=== PATIENT | female | born 1980 | race Caucasian/White ===

== ENCOUNTER 2017-03-08 16:54 | Inpatient (IN) | payer OTHER ==
[~2017-03-08] VITALS: Ht 170.2 cm; Wt 64.4 kg
[~2017-03-08 16:54] MED LIST: ACYCLOVIR400 MG PO; DILAUDID4 MG PO; IRON325 M1 PO; LEVAQUIN750 MG PO; NUVARING VAGIN1 EACH VAGINAL; PERCOCET 7.5-31 EACH PO; PRENATAL TABLE1 EAC1 PO; ZESTRIL10 MG PO
[2017-03-09] MEDS ORDERED: OXYCODON-ACETA1 EAC2 PO (12:57)
[2017-03-09] MEDS ORDERED: MOTRIN IB200 MG PO (12:58)
[2017-03-09] MEDS ORDERED: TYLENOL325 MG PO (12:58)
--- NOTE | 2017-03-10 11:14 | HP ---
[facility] [place] [facility] [address], [place] [address] Signed ADMISSION DATE: 03/08/2017 TIME: 08:15 p.m. REASON FOR ADMISSION: Early appendicitis. HISTORY OF PRESENT ILLNESS: This 37-year-old, white woman is well known to me from the past having undergone laparoscopic cholecystectomy with cholangiogram in June of 2014. Yesterday, she ate a tuna melt sandwich, and then began having epigastric and mid abdominal pain, which has since migrated to the right lower abdomen and has been progressively uncomfortable. She presented to the emergency room where she was evaluated by Dr. Slaughter and found to have tenderness in the right lower abdomen. A CT scan of the abdomen was performed confirming probable appendicitis with a dilated appendix. She has not really eaten since yesterday. She is admitted for further evaluation and care. PAST MEDICAL HISTORY: Childbirth x2. The patient is known to have a distant history of ovarian cyst and excision of right breast cyst in the past. Additionally, laparoscopic cholecystectomy with intraoperative cholangiogram in June of 2014. Past medical history does include hypertension. MEDICATIONS: Lisinopril. SOCIAL HISTORY: She is unmarried, but she lives with her children's father. She is not currently working. Previously, she worked at [employer]. REVIEW OF SYSTEMS: She denies any shortness of breath or chest pain. She has had no dysphagia or dysuria. She denies any hematemesis or blood per rectum. PHYSICAL EXAMINATION: GENERAL: A thin, white woman, who looks to be in no significant distress. HEENT: Mucous membranes are somewhat dry, however. NECK: Trachea is midline. CHEST: Shows normal respiratory excursion. HEART: Pulses regular. ABDOMEN: Nondistended. There is mild tenderness at McBurney point. Rovsing sign is negative. Electronically Signed By: VICTORINA KEN MD 03/10/17 1114 PATIENT NAME: MELISSA LUCERO HISTORY AND PHYSICAL DATE OF : 76 PHYSICIAN: VICTORINA KEN MD REPORT #: [id number] REPORT IS CONFIDENTIAL AND NOT TO BE RELEASED WITHOUT AUTHORIZATION [facility] [place] [facility] [address], [place] [address] Signed PELVIC: Exam was not undertaken. Her last menstrual period was 1 week ago. EXTREMITIES: No clubbing, cyanosis, or edema. LABORATORY DATA: White count is 9.5, hematocrit 44.8, and platelets 207,000. Chem profile is normal including liver enzymes and amylase normal. Urinalysis was also normal. I have reviewed the CT scan in detail. I see no evidence of bowel obstruction or other particular abnormalities. The appendix did appear mildly thickened. ASSESSMENT: Clinical history and radiographic findings are most consistent with appendicitis. Fluid resuscitation is underway. Antibiotics have been given including Zosyn. I believe appendectomy would be the most appropriate course of management. We discussed nonoperative therapy, which I do not favor, and she is not interested in any way. The risks of bleeding, infection, need for open procedure, failure of diagnosis, missed diagnosis, and need for other indicated procedures were reviewed in detail. She understands and wished to proceed. MD JOSÉ MIGUEL Hawk/RAFAEL /[id number] cc: MD Luciana Tadeo PA Electronically Signed By: VICTORINA KEN MD 03/10/17 1114 PATIENT NAME: MELISSA LUCERO EDWARD HISTORY AND PHYSICAL DATE OF : 76 PHYSICIAN: VICTORINA KEN MD REPORT #: [id number] REPORT IS CONFIDENTIAL AND NOT TO BE RELEASED WITHOUT AUTHORIZATION
--- NOTE | 2017-03-10 11:14 | OR ---
[facility] [place] [facility] [address] [place], [place] [address] Signed DATE OF OPERATION: 03/08/2017 SURGEON: Victorina Ken MD PREOPERATIVE DIAGNOSIS: Acute appendicitis. POSTOPERATIVE DIAGNOSIS: Acute nonperforated appendicitis. PROCEDURE: Laparoscopic appendectomy. ANESTHESIA: General endotracheal. Ap Argueta CRNA Local 10 mL of 0.25% Marcaine with epinephrine. INDICATION: A 37-year-old white woman, is taken to operation for acute appendicitis. Her symptoms began yesterday with central abdominal pain, migrating to the right lower abdomen. She has tenderness in the right lower quadrant. She is known to me from 2014, at which time she underwent laparoscopic cholecystectomy and cholangiogram. Her white count is slightly elevated. Urinalysis is normal. Beta-hCG is negative. CT scan was performed, which showed inflammatory changes of the appendix, normal terminal ileum and colon. She is admitted to undergo appendectomy, preferred by laparoscopic approach, understanding the risks of bleeding, infection, need for open procedure and other unforeseen complications. FINDINGS: There is no sign of ascites or carcinomatosis. The liver appeared normal. There was surgical absence of the gallbladder. The appendix was indeed inflamed, it was excised without problem. The ilium appeared normal. The pelvic organs were not easily visualized. DESCRIPTION OF PROCEDURE: The patient was brought to the operating room, given general endotracheal anesthetic. She received preoperative antibiotic Zosyn. After satisfactory general endotracheal Electronically Signed By: VICTORINA KEN MD 03/10/17 1114 PATIENT NAME: MELISSA LUCERO OPERATIVE REPORT DATE OF : 76 PHYSICIAN: VICTORINA KEN MD REPORT #: [id number] REPORT IS CONFIDENTIAL AND NOT TO BE RELEASED WITHOUT AUTHORIZATION [facility] [place] [facility] [address] [place], [place] [address] Signed anesthesia, a Gonzalez catheter was placed. The abdomen was prepared with a chlorhexidine solution and draped sterilely. Previous infraumbilical incision was used and dissection carried through the subcutaneous tissue and using a Katie cannula technique pneumoperitoneum was achieved to a level of 14 mmHg of carbon dioxide gas. Intraabdominal inspection showed no sign of ascites or carcinomatosis. The cecum was identified and the appendix was not visualized. An epigastric 12 mm port was then placed and the camera was placed to that site. Single hand manipulation of the cecum confirmed appendicitis. The appendix was directed posteriorly and was markedly inflamed. The right lower quadrant 5 mm port was placed and using two hand manipulation, the appendix could be elevated into good view. A window was created between the appendix in the mesoappendix and the window created allowed for application of the Endo-JALEESA stapling device. The base the appendix was transected and flushed with the cecum. There was no untoward bleeding. Using Endo-JALEESA stapling device load once again on the mesoappendix, transection of mesoappendix was accomplished without problem. There was no bleeding there either. The appendix was withdrawn into the infraumbilical trocar site and removed, passed for permanent pathology. Reinspection of the staple line showed good hemostasis. Irrigation was undertaken. An attempted visualization of the pelvic organs was unsuccessful due to redundancy of bowel and no further attempts were made to do so. The liver appeared normal. There was surgical absence of the gallbladder. The trocars were removed under direct visualization. The infraumbilical fascial incision was reapproximated with interrupted 0 Vicryl suture. All wounds were copiously irrigated with saline solution. Skin closed with interrupted 3-0 Vicryl. The patient was ultimately extubated and transferred to recovery room in good condition having suffered no complications. Sponge, needle, and instruments counts reported as correct x3. MD JOSÉ MIGUEL Hawk/CELENAL /[id number] Electronically Signed By: VICTORINA KEN MD 03/10/17 1114 PATIENT NAME: MELISSA LUCERO EDWARD OPERATIVE REPORT DATE OF : 76 PHYSICIAN: VICTORINA KEN MD REPORT #: [id number] REPORT IS CONFIDENTIAL AND NOT TO BE RELEASED WITHOUT AUTHORIZATION [facility] [address] [place] [address] [place] [address] Signed cc: MD Luciana Tadeo PA Electronically Signed By: VICTORINA KEN MD 03/10/17 1114 PATIENT NAME: MELISSA LUCERO EDWARD OPERATIVE REPORT DATE OF : 76 PHYSICIAN: VICTORINA KEN MD REPORT #: [id number] REPORT IS CONFIDENTIAL AND NOT TO BE RELEASED WITHOUT AUTHORIZATION
== END 2017-03-09 21:22 | disposition home or self-care (01) | DRG 343 ==
LOC: ED 16:54 → MS 20:00
PROVIDERS: ADMIT Surgery
PROC: 0DTJ0ZZ Resection of Appendix, Open Approach (ICD-10-PCS; principal; 2017-03-08 20:35)
DX: K35.80 Unspecified acute appendicitis (principal)
CPT/HCPCS: 00840; 74177; 80053; 81001; 83690; 84703; 85025; 96361; 96374; 96375; 99285; J1170; J1644; J1885; J2270; J2405; J2543; J2550; J2704; J3010; J7030; J7120; Q9967

== ENCOUNTER 2019-12-05 16:34 | Emergency (ER) | payer SELFPAY ==
[~2019-12-05] VITALS: Ht 170.2 cm; Wt 64.4 kg
[~2019-12-05 16:34] MED LIST changes: +MOTRIN IB200 MG PO; +OXYCODON-ACETA1 EAC2 PO; +TYLENOL325 MG PO
[2019-12-05] MEDS ORDERED: ATIVAN1 MG PO (18:09)
[2019-12-05] MEDS ORDERED: NAPROSYN500 MG PO (18:09)
[2019-12-05] MEDS ORDERED: LIDODERM1 EACH TD (18:09)
== END 2019-12-05 18:56 | disposition home or self-care (01) ==
LOC: ED 16:34
DX: M62.830 Muscle spasm of back (principal); I10 Essential (primary) hypertension; Z87.891 Personal history of nicotine dependence; Z79.899 Other long term (current) drug therapy
CPT/HCPCS: 80053; 81001; 83690; 84703; 85025; 96374; 96375; 99283-25; J1885; J2060